=== PATIENT | female | born 1965 | race Caucasian/White ===

== ENCOUNTER 2022-09-07 08:44 | Outpatient (CLI) | payer BC, SELFPAY ==
[2022-09-07 14:19] LABS: Chloride* 101 mmol/L (96-114); Potassium* 4.3 mmol/L (3.6-5.1); Sodium* 135 mmol/L (135-149)
[2022-09-07 14:21] LABS: Cholesterol* 179 mg/dL (90-199); Creatinine* 0.6 mg/dL (0.5-1.5); Estimated Glomerular Filt Rate 106 ml/min
[2022-09-07 14:22] LABS: Blood Urea Nitrogen* 17 mg/dL (7-30); Calcium* 8.8 mg/dL (8.4-10.6); Carbon Dioxide* 33 mmol/L (20-32); Glucose* 87 mg/dL (60-115); HDL Cholesterol* 83 mg/dL (>=50); LDL Cholesterol Calculated 81 mg/dL (<100); Triglycerides* 77 mg/dL (40-149)
== END 2022-09-07 08:45 | disposition home or self-care (01) ==
PROVIDERS: PCP Family Medicine; Visit Provider Family Medicine
DX: I10 Essential (primary) hypertension (principal); Z13.6 Encounter for screening for cardiovascular disorders
CPT/HCPCS: 80048; 80061

== ENCOUNTER 2022-09-09 06:36 | Emergency (ER) | payer BC, SELFPAY ==
[2022-09-09 06:45] VITALS: BP 164/89; PULSE 77; RESP 18; TEMP 36.5; O2SAT 99; BMI 23.4
--- NOTE | 2022-09-09 07:31 | ED.ABDPAIN ---
HPI - Abdominal Pain General Date Seen: 09/09/22 <Dru Zamora MD - Last Filed: 09/09/22 07:50> Chief Complaint: Abdominal Pain <Dru Zamora MD - Last Filed: 09/09/22 07:50> Stated Complaint: abdominal pain <Dru Zamora MD - Last Filed: 09/09/22 07:50> Time Seen by Provider: 09/09/22 06:37 <Dru Zamora MD - Last Filed: 09/09/22 07:50> Source: patient <Dru Zamora MD - Last Filed: 09/09/22 07:50> Mode of arrival: ambulatory <Dru Zamora MD - Last Filed: 09/09/22 07:50> Limitations: no limitations <Dru Zamora MD - Last Filed: 09/09/22 07:50> History of Present Illness HPI narrative: Patient is a 56-year-old female who presents here with epigastric discomfort since approximately about midnight, 7 hours in total. She describes burning in her epigastrium, with no radiation to her chest back or anywhere else. She notes that the pain was not help with [place] that she took at home. There is no nausea associated with this any vomiting, her bowel movements have been normal and she has an absence of dysuria she has no cardiac history per se but does have a history of smoking and also hypertension. She works a very stressful job with the [email or web address], and does drink approximately 2 caffeinated beverages a day. She has noted no coughing shortness of breath fevers chills associated with this or any other COVID type symptoms. She did take 3 tablets of Advil before she came in and this did help. <Dru Zamora MD - Last Filed: 09/09/22 07:50> MD elicited complaint: abdominal pain <Dru Zamora MD - Last Filed: 09/09/22 07:50> Pertinent past history: none <Dru Zamora MD - Last Filed: 09/09/22 07:50> Onset (ago): hour(s) <Dru Zamora MD - Last Filed: 09/09/22 07:50> Pain Consistency: constant <Dru Zamora MD - Last Filed: 09/09/22 07:50> Location: epigastric <Dru Zamora MD - Last Filed: 09/09/22 07:50> Severity: moderate <Dru Zamora MD - Last Filed: 09/09/22 07:50> Quality: sharp and burning <Dru Zamora MD - Last Filed: 09/09/22 07:50> Radiation: none <Dru Zamora MD - Last Filed: 09/09/22 07:50> Migration to: no migration <Dru Zamora MD - Last Filed: 09/09/22 07:50> Exacerbating factors: nothing <Dru Zamora MD - Last Filed: 09/09/22 07:50> Relieving factors: nothing <Dru Zamora MD - Last Filed: 09/09/22 07:50> Associated symptoms: denies other symptoms <Dru Zamora MD - Last Filed: 09/09/22 07:50> Treatments prior to arrival: NSAIDs <Dru Zamora MD - Last Filed: 09/09/22 07:50> Related Data Patient : No <Dru Zamora MD - Last Filed: 09/09/22 07:50> Home Medications: Home Medications Medication Instructions Recorded Confirmed Oregano spirits PO 09/06/22 Tumeric PO 09/06/22 albuterol sulfate 90 mcg/actuation 2 puff inhalation Q4H PRN 09/06/22 09/09/22 aerosol inhaler aspirin 81 mg chewable tablet 1 tab PO DAILY 09/06/22 09/09/22 coenzyme Q10 100 mg capsule 100 mg PO DAILY 09/06/22 09/09/22 garlic 500 mg capsule 500 mg PO BID 09/06/22 09/09/22 melatonin 3 mg capsule 3 mg PO HS PRN 09/06/22 09/09/22 psyllium 1 tbsp PO QDAY 09/06/22 09/09/22 zinc gluconate 50 mg tablet 50 mg PO DAILY 09/06/22 09/09/22 magnesium PO 09/07/22 09/07/22 Previous Rx's Medication Instructions Recorded amlodipine 5 mg tablet 5 mg PO QDAY #90 tabs 09/07/22 lisinopril 20 2 tab PO QDAY #180 tabs 09/07/22 mg-hydrochlorothiazide 12.5 mg tablet <Dru Zamora MD - Last Filed: 09/09/22 07:50> Allergies/Adverse Reactions: Allergies Allergy/AdvReac Type Severity Reaction Status Date / Time No Known Drug Allergies Allergy Verified 09/09/22 06:54 <Dru Zamora MD - Last Filed: 09/09/22 07:50> Review of Systems Status of ROS Reports: 10 or more systems reviewed and unremarkable except as noted in History and below <Dru Zamora MD - Last Filed: 09/09/22 07:50> PFSH PFS Medical History: Medical History Chest wall pain Hypertension Tobacco abuse <Dru Zamora MD - Last Filed: 09/09/22 07:50> Surgical History: Surgical History No significant past surgical history <Dru Zamora MD - Last Filed: 09/09/22 07:50> Family History: Family History Mother High blood pressure <Dru Zamora MD - Last Filed: 09/09/22 07:50> Social History: Social History Narrative: , 2 kids Lead [employer] trying to quit smoking social EtHO Smoking Status: Current every day smoker Second hand tobacco smoke exposure: Yes How often do you have a drink containing alcohol: never How often do you have six or more drinks on one occasion: Never AUDIT-C Alcohol total score: 0 Non-prescribed substance use: denies use Little interest or pleasure in doing things: not at all Feeling down, depressed, or hopeless: not at all <Dru Zamora MD - Last Filed: 09/09/22 07:50> Exam Narrative: Exam Narrative: Patient is speaking normally, no problem with slurring words, oriented x3. Head eyes ears nose and throat exam show equal pupils, no scleral icterus, extraocular muscles are normal, no facial droop, speech is normal, trachea normal and midline. Thyroid normal midline palpable not enlarged. Chest shows symmetrical rise bilaterally, normal auscultation with no wheezes, no increased work of breathing, no overt bruising or lesions seen, no tenderness is noted on auscultation. Heart sounds normal with no S3-S4 no murmurs clicks or gallops. Abdomen shows no obvious masses or hepatosplenomegaly, no organomegaly, bowel sounds are normal in all quadrants. No tenderness is noted also in all quadrants. No pulsatile masses are noted on her abdomen.Upper and lower extremities show normal power, normal range of motion, pulses are normal, sensations normal, fine motor movements are normal, pelvis is stable to rocking. Cervical spine shows normal range of motion, and palpably not tender. Thoracic spine shows normal range of motion, and palpably not tender, lumbar spine shows no tenderness to palpation percussion and is otherwise normal range of motion. Skin shows no rashes, petechiae or eccymosis. <Dru Zamora MD - Last Filed: 09/09/22 07:50> Const: Vital Signs, click to edit/add: Vital Signs - 24 hr 09/09/22 06:45 Temperature 97.7 F Pulse Rate [Right Pulse Oximeter] 77 Respiratory Rate 18 Blood Pressure [Ri ght Upper Arm] 164/89 H Pulse Oximetry 99 Oxygen Delivery Me thod Room Air <Dru Zamora MD - Last Filed: 09/09/22 07:50> Vital Signs, click to edit/add: Vital Signs - 24 hr 09/09/22 06:45 Temperature 97.7 F Pulse Rate [Right Pulse Oximeter] 77 Respiratory Rate 18 Blood Pressure [Ri ght Upper Arm] 164/89 H Pulse Oximetry 99 Oxygen Delivery Me thod Room Air <Everett Macias MD - Last Filed: 09/09/22 10:28> Documenting provider has reviewed patient's vital signs: yes <Dru Zamora MD - Last Filed: 09/09/22 07:50> Course Reevaluation(s) Reevaluation #1: Pt states her epigastric pain is improved. Pt's ultrasound and follow up troponin and EKG are both normal. <Everett Macias MD - Last Filed: 09/09/22 10:28> Time: 10:24 <Everett Macias MD - Last Filed: 09/09/22 10:28> Vital Signs Vital signs: Initial Vital Signs Temperature 97.7 F 09/09/22 06:45 Temperature Source Oral 09/09/22 06:45 Pulse Rate 77 09/09/22 06:45 Respiratory Rate 18 09/09/22 06:45 Blood Pressure 164/89 H 09/09/22 06:45 Blood Pressure Mean 114 09/09/22 06:45 Blood Pressure Position Sitting 09/09/22 06:45 Pulse Oximetry 99 09/09/22 06:45 Oxygen Delivery Method 09/09/22 06:45 Vital Signs Temperature 97.7 F 09/09/22 06:45 Pulse Rate 77 09/09/22 06:45 Respiratory Rate 18 09/09/22 06:45 Blood Pressure 164/89 H 09/09/22 06:45 Pulse Oximetry 99 09/09/22 06:45 Oxygen Delivery Method 09/09/22 06:45 Temperature 97.7 F 09/09/22 06:45 Pulse Rate 77 09/09/22 06:45 Respiratory Rate 18 09/09/22 06:45 Blood Pressure 164/89 H 09/09/22 06:45 Pulse Oximetry 99 09/09/22 06:45 Oxygen Delivery Method 09/09/22 06:45 <Dru Zamora MD - Last Filed: 09/09/22 07:50> Initial Vital Signs Temperature 97.7 F 09/09/22 06:45 Temperature Source Oral 09/09/22 06:45 Pulse Rate 77 09/09/22 06:45 Respiratory Rate 18 09/09/22 06:45 Blood Pressure 164/89 H 09/09/22 06:45 Blood Pressure Mean 114 09/09/22 06:45 Blood Pressure Position Sitting 09/09/22 06:45 Pulse Oximetry 99 09/09/22 06:45 Oxygen Delivery Method 09/09/22 06:45 Vital Signs Temperature 97.7 F 09/09/22 06:45 Pulse Rate 77 09/09/22 06:45 Respiratory Rate 18 09/09/22 06:45 Blood Pressure 164/89 H 09/09/22 06:45 Pulse Oximetry 99 09/09/22 06:45 Oxygen Delivery Method 09/09/22 06:45 Temperature 97.7 F 09/09/22 06:45 Pulse Rate 77 09/09/22 06:45 Respiratory Rate 18 09/09/22 06:45 Blood Pressure 164/89 H 09/09/22 06:45 Pulse Oximetry 99 09/09/22 06:45 Oxygen Delivery Method 09/09/22 06:45 <Everett Macias MD - Last Filed: 09/09/22 10:28> MDM - Abdominal Pain MDM Narrative Medical decision making narrative: During the evaluation of this patient I considered multiple differential diagnosis including life-threatening differentials which are appendicitis, aortic aneurysm, mesenteric ischemia, bowel perforation, ectopic , volvulus and bowel obstruction, other differential diagnosis include but are not limited to inflammatory bowel disease, cholecystitis, pancreatitis, hepatitis, gastritis, GERD, diverticulitis, peptic ulcer disease, pyelonephritis/UTI, renal colic/stone, pelvic inflammatory disease, cervicitis, endometritis, intrauterine , dysfunctional uterine bleeding, ovarian cyst/torsion, spontaneous as well as other etiologies <Dru Zamora MD - Last Filed: 09/09/22 07:50> During the evaluation of this patient I considered multiple differential diagnosis including life-threatening differentials which are appendicitis, aortic aneurysm, mesenteric ischemia, bowel perforation, ectopic , volvulus and bowel obstruction, other differential diagnosis include but are not limited to inflammatory bowel disease, cholecystitis, pancreatitis, hepatitis, gastritis, GERD, diverticulitis, peptic ulcer disease, pyelonephritis/UTI, renal colic/stone, pelvic inflammatory disease, cervicitis, endometritis, intrauterine , dysfunctional uterine bleeding, ovarian cyst/torsion, spontaneous as well as other etiologies Follow up testing for my colleague including troponin, ekg and ultrasound negative for acute processes. <Everett Macias MD - Last Filed: 09/09/22 10:28> Differential Diagnosis Differential diagnosis: Likely abdominal pain, acute appendicitis, diverticulitis, gastroenteritis, pancreatitis and small bowel obstruction <Everett Macias MD - Last Filed: 09/09/22 10:28> Medical Records Attestation: I reviewed the patient's medical records. <Dru Zamora MD - Last Filed: 09/09/22 07:50> Lab Data Attestation: I reviewed the patient's lab results. <Dru Zamora MD - Last Filed: 09/09/22 07:50> Labs: Lab Results 09/09/22 09/09/22 09/09/22 Range/Units 07:20 07:20 07:20 WBC 11.29 H (4.50-11.00) K/uL RBC 4.67 (4.00-5.20) m/uL Hgb 14.9 (12.0-16.0) gm/dL Hct 43.1 (33.0-51.0) % MCV 92 (80-100) fL MCH 32 (26-34) pg MCHC 35 (32-36) gm/dL RDW Coeff of Jose 13.0 (11.5-15.5) % Plt Count 234 (140-440) K/uL Neut % (Auto) 80.0 H (42.0-72.0) % Lymph % (Auto) 12.3 L (20-44) % Garrett % (Auto) 6.2 (0.0-11.0) % Eos % (Auto) 1.1 (0.0-7.0) % Baso % (Auto) 0.4 (0.0-3.0) % Neut # (Auto) 9.00 H (1.7-7.0) K/uL Lymph # (Auto) 1.40 (0.90-2.90) K/uL Garrett # (Auto) 0.70 (0.00-0.90) K/UL Eos # (Auto) 0.10 (0.00-0.50) K/uL Baso # (Auto) 0.00 (0.00-0.30) K/uL D-Dimer Quant (PE/DVT) (0.00-0.50) ug/ml Sodium 135 (135-149) mmol/L Potassium 3.5 L (3.6-5.1) mmol/L Chloride 100 (96-114) mmol/L Carbon Dioxide 32 (20-32) mmol/L BUN 15 (7-30) mg/dL Creatinine 0.5 (0.5-1.5) mg/dL Estimated Creat Clear 119.01 Estimated GFR 111 ml/min Glucose 95 (60-115) mg/dL Calcium 8.9 (8.4-10.6) mg/dL Total Bilirubin 0.7 (0.1-1.5) mg/dL Direct Bilirubin 0.1 (0.0-0.5) mg/dL AST 27 (12-35) U/L ALT 27 (4-35) U/L Alkaline Phosphatase 67 (40-150) U/L Total Protein 7.2 (6.0-8.3) g/dL Albumin 4.3 (3.3-5.0) g/dL Amylase 81 (18-89) U/L Lipase 143 (23-300) U/L Urine Color (Yellow) Urine Appearance (Clear) Urine pH (5.0-8.5) Ur Specific [place] (1.000-1.030) Urine Protein (Negative) Urine Glucose (UA) (Negative) Urine Ketones (Negative) Urine Blood (Negative) Urine Nitrite (Negative) Urine Bilirubin (Negative) Urine Urobilinogen (0.2-1.0) Ur Leukocyte Esterase (Negative) Urine RBC (0-2) Urine WBC (0-5) Ur Squamous Epith Cells (None-Few) Amorphous Sediment (None) Urine Bacteria (None) POC Troponin I (0.01-0.04) ng/ml 09/09/22 09/09/22 09/09/22 Range/Units 07:20 07:29 08:05 WBC (4.50-11.00) K/uL RBC (4.00-5.20) m/uL Hgb (12.0-16.0) gm/dL Hct (33.0-51.0) % MCV (80-100) fL MCH (26-34) pg MCHC (32-36) gm/dL RDW Coeff of Jose (11.5-15.5) % Plt Count (140-440) K/uL Neut % (Auto) (42.0-72.0) % Lymph % (Auto) (20-44) % Garrett % (Auto) (0.0-11.0) % Eos % (Auto) (0.0-7.0) % Baso % (Auto) (0.0-3.0) % Neut # (Auto) (1.7-7.0) K/uL Lymph # (Auto) (0.90-2.90) K/uL Garrett # (Auto) (0.00-0.90) K/UL Eos # (Auto) (0.00-0.50) K/uL Baso # (Auto) (0.00-0.30) K/uL D-Dimer Quant (PE/DVT) < 0.27 (0.00-0.50) ug/ml Sodium (135-149) mmol/L Potassium (3.6-5.1) mmol/L Chloride (96-114) mmol/L Carbon Dioxide (20-32) mmol/L BUN (7-30) mg/dL Creatinine (0.5-1.5) mg/dL Estimated Creat Clear Estimated GFR ml/min Glucose (60-115) mg/dL Calcium (8.4-10.6) mg/dL Total Bilirubin (0.1-1.5) mg/dL Direct Bilirubin (0.0-0.5) mg/dL AST (12-35) U/L ALT (4-35) U/L Alkaline Phosphatase (40-150) U/L Total Protein (6.0-8.3) g/dL Albumin (3.3-5.0) g/dL Amylase (18-89) U/L Lipase (23-300) U/L Urine Color Yellow (Yellow) Urine Appearance Clear (Clear) Urine pH 7.5 (5.0-8.5) Ur Specific [place] 1.015 (1.000-1.030) Urine Protein Negative (Negative) Urine Glucose (UA) Negative (Negative) Urine Ketones Negative (Negative) Urine Blood Trace-intact A (Negative) Urine Nitrite Negative (Negative) Urine Bilirubin Negative (Negative) Urine Urobilinogen 0.2 (0.2-1.0) Ur Leukocyte Esterase Trace A (Negative) Urine RBC 0-2 (0-2) Urine WBC 0-2 (0-5) Ur Squamous Epith Cells Few (None-Few) Amorphous Sediment Few A (None) Urine Bacteria Moderate A (None) POC Troponin I 0.00 L (0.01-0.04) ng/ml 09/09/22 Range/Units 08:45 WBC (4.50-11.00) K/uL RBC (4.00-5.20) m/uL Hgb (12.0-16.0) gm/dL Hct (33.0-51.0) % MCV (80-100) fL MCH (26-34) pg MCHC (32-36) gm/dL RDW Coeff of Jose (11.5-15.5) % Plt Count (140-440) K/uL Neut % (Auto) (42.0-72.0) % Lymph % (Auto) (20-44) % Garrett % (Auto) (0.0-11.0) % Eos % (Auto) (0.0-7.0) % Baso % (Auto) (0.0-3.0) % Neut # (Auto) (1.7-7.0) K/uL Lymph # (Auto) (0.90-2.90) K/uL [place] # (Auto) (0.00-0.90) K/UL Eos # (Auto) (0.00-0.50) K/uL Baso # (Auto) (0.00-0.30) K/uL D-Dimer Quant (PE/DVT) (0.00-0.50) ug/ml Sodium (135-149) mmol/L Potassium (3.6-5.1) mmol/L Chloride (96-114) mmol/L Carbon Dioxide (20-32) mmol/L BUN (7-30) mg/dL Creatinine (0.5-1.5) mg/dL Estimated Creat Clear Estimated GFR ml/min Glucose (60-115) mg/dL Calcium (8.4-10.6) mg/dL Total Bilirubin (0.1-1.5) mg/dL Direct Bilirubin (0.0-0.5) mg/dL AST (12-35) U/L ALT (4-35) U/L Alkaline Phosphatase (40-150) U/L Total Protein (6.0-8.3) g/dL Albumin (3.3-5.0) g/dL Amylase (18-89) U/L Lipase (23-300) U/L Urine Color (Yellow) Urine Appearance (Clear) Urine pH (5.0-8.5) Ur Specific [place] (1.000-1.030) Urine Protein (Negative) Urine Glucose (UA) (Negative) Urine Ketones (Negative) Urine Blood (Negative) Urine Nitrite (Negative) Urine Bilirubin (Negative) Urine Urobilinogen (0.2-1.0) Ur Leukocyte Esterase (Negative) Urine RBC (0-2) Urine WBC (0-5) Ur Squamous Epith Cells (None-Few) Amorphous Sediment (None) Urine Bacteria (None) POC Troponin I 0.00 L (0.01-0.04) ng/ml <Dru Zamora MD - Last Filed: 09/09/22 07:50> Lab Results 09/09/22 09/09/22 09/09/22 Range/Units 07:20 07:20 07:20 WBC 11.29 H (4.50-11.00) K/uL RBC 4.67 (4.00-5.20) m/uL Hgb 14.9 (12.0-16.0) gm/dL Hct 43.1 (33.0-51.0) % MCV 92 (80-100) fL MCH 32 (26-34) pg MCHC 35 (32-36) gm/dL RDW Coeff of Jose 13.0 (11.5-15.5) % Plt Count 234 (140-440) K/uL Neut % (Auto) 80.0 H (42.0-72.0) % Lymph % (Auto) 12.3 L (20-44) % Garrett % (Auto) 6.2 (0.0-11.0) % Eos % (Auto) 1.1 (0.0-7.0) % Baso % (Auto) 0.4 (0.0-3.0) % Neut # (Auto) 9.00 H (1.7-7.0) K/uL Lymph # (Auto) 1.40 (0.90-2.90) K/uL Garrett # (Auto) 0.70 (0.00-0.90) K/UL Eos # (Auto) 0.10 (0.00-0.50) K/uL Baso # (Auto) 0.00 (0.00-0.30) K/uL D-Dimer Quant (PE/DVT) (0.00-0.50) ug/ml Sodium 135 (135-149) mmol/L Potassium 3.5 L (3.6-5.1) mmol/L Chloride 100 (96-114) mmol/L Carbon Dioxide 32 (20-32) mmol/L BUN 15 (7-30) mg/dL Creatinine 0.5 (0.5-1.5) mg/dL Estimated Creat Clear 119.01 Estimated GFR 111 ml/min Glucose 95 (60-115) mg/dL Calcium 8.9 (8.4-10.6) mg/dL Total Bilirubin 0.7 (0.1-1.5) mg/dL Direct Bilirubin 0.1 (0.0-0.5) mg/dL AST 27 (12-35) U/L ALT 27 (4-35) U/L Alkaline Phosphatase 67 (40-150) U/L Total Protein 7.2 (6.0-8.3) g/dL Albumin 4.3 (3.3-5.0) g/dL Amylase 81 (18-89) U/L Lipase 143 (23-300) U/L Urine Color (Yellow) Urine Appearance (Clear) Urine pH (5.0-8.5) Ur Specific [place] (1.000-1.030) Urine Protein (Negative) Urine Glucose (UA) (Negative) Urine Ketones (Negative) Urine Blood (Negative) Urine Nitrite (Negative) Urine Bilirubin (Negative) Urine Urobilinogen (0.2-1.0) Ur Leukocyte Esterase (Negative) Urine RBC (0-2) Urine WBC (0-5) Ur Squamous Epith Cells (None-Few) Amorphous Sediment (None) Urine Bacteria (None) POC Troponin I (0.01-0.04) ng/ml 09/09/22 09/09/22 09/09/22 Range/Units 07:20 07:29 08:05 WBC (4.50-11.00) K/uL RBC (4.00-5.20) m/uL Hgb (12.0-16.0) gm/dL Hct (33.0-51.0) % MCV (80-100) fL MCH (26-34) pg MCHC (32-36) gm/dL RDW Coeff of Jose (11.5-15.5) % Plt Count (140-440) K/uL Neut % (Auto) (42.0-72.0) % Lymph % (Auto) (20-44) % Garrett % (Auto) (0.0-11.0) % Eos % (Auto) (0.0-7.0) % Baso % (Auto) (0.0-3.0) % Neut # (Auto) (1.7-7.0) K/uL Lymph # (Auto) (0.90-2.90) K/uL Garrett # (Auto) (0.00-0.90) K/UL Eos # (Auto) (0.00-0.50) K/uL Baso # (Auto) (0.00-0.30) K/uL D-Dimer Quant (PE/DVT) < 0.27 (0.00-0.50) ug/ml Sodium (135-149) mmol/L Potassium (3.6-5.1) mmol/L Chloride (96-114) mmol/L Carbon Dioxide (20-32) mmol/L BUN (7-30) mg/dL Creatinine (0.5-1.5) mg/dL Estimated Creat Clear Estimated GFR ml/min Glucose (60-115) mg/dL Calcium (8.4-10.6) mg/dL Total Bilirubin (0.1-1.5) mg/dL Direct Bilirubin (0.0-0.5) mg/dL AST (12-35) U/L ALT (4-35) U/L Alkaline Phosphatase (40-150) U/L Total Protein (6.0-8.3) g/dL Albumin (3.3-5.0) g/dL Amylase (18-89) U/L Lipase (23-300) U/L Urine Color Yellow (Yellow) Urine Appearance Clear (Clear) Urine pH 7.5 (5.0-8.5) Ur Specific [place] 1.015 (1.000-1.030) Urine Protein Negative (Negative) Urine Glucose (UA) Negative (Negative) Urine Ketones Negative (Negative) Urine Blood Trace-intact A (Negative) Urine Nitrite Negative (Negative) Urine Bilirubin Negative (Negative) Urine Urobilinogen 0.2 (0.2-1.0) Ur Leukocyte Esterase Trace A (Negative) Urine RBC 0-2 (0-2) Urine WBC 0-2 (0-5) Ur Squamous Epith Cells Few (None-Few) Amorphous Sediment Few A (None) Urine Bacteria Moderate A (None) POC Troponin I 0.00 L (0.01-0.04) ng/ml 09/09/22 Range/Units 08:45 WBC (4.50-11.00) K/uL RBC (4.00-5.20) m/uL Hgb (12.0-16.0) gm/dL Hct (33.0-51.0) % MCV (80-100) fL MCH (26-34) pg MCHC (32-36) gm/dL RDW Coeff of Jose (11.5-15.5) % Plt Count (140-440) K/uL Neut % (Auto) (42.0-72.0) % Lymph % (Auto) (20-44) % Garrett % (Auto) (0.0-11.0) % Eos % (Auto) (0.0-7.0) % Baso % (Auto) (0.0-3.0) % Neut # (Auto) (1.7-7.0) K/uL Lymph # (Auto) (0.90-2.90) K/uL Garrett # (Auto) (0.00-0.90) K/UL Eos # (Auto) (0.00-0.50) K/uL Baso # (Auto) (0.00-0.30) K/uL D-Dimer Quant (PE/DVT) (0.00-0.50) ug/ml Sodium (135-149) mmol/L Potassium (3.6-5.1) mmol/L Chloride (96-114) mmol/L Carbon Dioxide (20-32) mmol/L BUN (7-30) mg/dL Creatinine (0.5-1.5) mg/dL Estimated Creat Clear Estimated GFR ml/min Glucose (60-115) mg/dL Calcium (8.4-10.6) mg/dL Total Bilirubin (0.1-1.5) mg/dL Direct Bilirubin (0.0-0.5) mg/dL AST (12-35) U/L ALT (4-35) U/L Alkaline Phosphatase (40-150) U/L Total Protein (6.0-8.3) g/dL Albumin (3.3-5.0) g/dL Amylase (18-89) U/L Lipase (23-300) U/L Urine Color (Yellow) Urine Appearance (Clear) Urine pH (5.0-8.5) Ur Specific [place] (1.000-1.030) Urine Protein (Negative) Urine Glucose (UA) (Negative) Urine Ketones (Negative) Urine Blood (Negative) Urine Nitrite (Negative) Urine Bilirubin (Negative) Urine Urobilinogen (0.2-1.0) Ur Leukocyte Esterase (Negative) Urine RBC (0-2) Urine WBC (0-5) Ur Squamous Epith Cells (None-Few) Amorphous Sediment (None) Urine Bacteria (None) POC Troponin I 0.00 L (0.01-0.04) ng/ml <Everett Macias MD - Last Filed: 09/09/22 10:28> ECG Data ECG interpretation date: 09/09/22 <Dru Zamora MD - Last Filed: 09/09/22 07:50> ECG interpretation time: 07:50 <Dru Zamora MD - Last Filed: 09/09/22 07:50> Prior ECG tracings: not available for review <Dru Zamora MD - Last Filed: 09/09/22 07:50> Interpretation: EKG shows normal sinus rhythm, no acute ST wave changes, suggestive of ischemia, rhythm is sinus and rate is 63. <Dru Zamora MD - Last Filed: 09/09/22 07:50> Discharge Plan Discharge Clinical Impression: Dyspepsia <Dru Zamora MD - Last Filed: 09/09/22 07:50> Patient Disposition: Home, Self-Care <Dru Zamora MD - Last Filed: 09/09/22 07:50> Condition: Stable <Dru Zamora MD - Last Filed: 09/09/22 07:50> Instructions: Abdominal Pain (ED) <Dru Zamora MD - Last Filed: 09/09/22 07:50> Additional Instructions: Prilosec over the counter 20 mg twice daily for 2 weeks Maalox as needed Follow up with your doctor in 1 week. <Dru Zamora MD - Last Filed: 09/09/22 07:50> Activity Level: No Restrictions <Dru Zamora MD - Last Filed: 09/09/22 07:50> No Restrictions <Everett Macias MD - Last Filed: 09/09/22 10:28> Discharge Diet: Regular <Dru Zamora MD - Last Filed: 09/09/22 07:50> Regular <Everett Macias MD - Last Filed: 09/09/22 10:28> Prescriptions: No Action melatonin 3 mg capsule 3 mg PO HS PRN coenzyme Q10 100 mg capsule 100 mg PO DAILY zinc gluconate 50 mg tablet 50 mg PO DAILY aspirin 81 mg tablet,chewable 1 tab PO DAILY Tumeric PO psyllium Powder 1 tbsp PO QDAY Rx Instructions: mix into at least 8 oz of water or juice before administering Oregano spirits PO garlic 500 mg capsule 500 mg PO BID albuterol sulfate 90 mcg/actuation HFA aerosol inhaler 2 puff inhalation Q4H PRN magnesium PO lisinopril-hydrochlorothiazide 20-12.5 mg tablet 2 tab PO QDAY Qty: 180 3RF amlodipine 5 mg tablet 5 mg PO QDAY Qty: 90 3RF <Dru Zamora MD - Last Filed: 09/09/22 07:50> Follow Up/Referrals: Gareth Hui MD [Primary Care Provider] - <Dru Zamora MD - Last Filed: 09/09/22 07:50> Stand Alone Forms: [facility] Info Instructions <Dru Zamora MD - Last Filed: 09/09/22 07:50>
--- NOTE | 2022-09-09 07:41 | CRLHL7_ITS ---
For Patients: As a result of the Century Cures Act, medical imaging exams and procedure reports are released immediately into your electronic medical record. You may view this report before your referring provider. If you have questions, please contact your health care provider. INDICATION: Epigastric discomfort. COMPARISON: None. TECHNIQUE: Real time pearl scale imaging was performed of the right upper quadrant. FINDINGS: The patient`s liver is of normal size and has uniform echogenicity. There is a normal appearance of the hepatic IVC and proximal abdominal aorta. There is no evidence of ascites. The gallbladder is of normal size and there is no evidence of intraluminal stones or sludge. The gallbladder wall measures 2 mm in thickness. The common bile duct is of normal size and measures 4 mm in diameter at the level of the shahbaz hepatis. The pancreas appears normal. There is no evidence of a stone or hydronephrosis within the right kidney. The right kidney measures 11.0 cm in length. IMPRESSION: Normal right upper quadrant ultrasound. Dictated by Joshua Conti MD @ 09/09/2022 8:54:28 AM (Electronically Signed)
[2022-09-09 07:45] LABS: Basophils Percent Auto 0.4 % (0.0-3.0); Eosinophils Percent Auto 1.1 % (0.0-7.0); Hematocrit 43.1 % (33.0-51.0); Hemoglobin* 14.9 gm/dL (12.0-16.0); Lymphocytes Percent Auto 12.3 % (20-44); Mean Corpuscular HGB Conc 35 gm/dL (32-36); Mean Corpuscular Hemoglobin 32 pg (26-34); Mean Corpuscular Volume 92 fL (80-100); Monocytes Percent Auto 6.2 % (0.0-11.0); Platelet Count* 234 K/uL (140-440); Red Blood Count 4.67 m/uL (4.00-5.20); Slide Review Reflex No; White Blood Count* 11.29 K/uL (4.50-11.00)
[2022-09-09 07:59] LABS: Chloride* 100 mmol/L (96-114); Sodium* 135 mmol/L (135-149)
[2022-09-09 08:00] LABS: Albumin* 4.3 g/dL (3.3-5.0)
[2022-09-09 08:02] LABS: Amylase* 81 U/L (18-89); Blood Urea Nitrogen* 15 mg/dL (7-30); Carbon Dioxide* 32 mmol/L (20-32); Creatinine* 0.5 mg/dL (0.5-1.5); Est. Creatinine Clearance* 119.01; Estimated Glomerular Filt Rate 111 ml/min; Glucose* 95 mg/dL (60-115)
[2022-09-09 08:03] LABS: Alkaline Phosphatase* 67 U/L (40-150); Aspartate Amino Transferase* 27 U/L (12-35); Bilirubin Direct* 0.1 mg/dL (0.0-0.5); Bilirubin Total* 0.7 mg/dL (0.1-1.5); Calcium* 8.9 mg/dL (8.4-10.6); D Dimer Quantitative* < 0.27 ug/ml (0.00-0.50); Lipase* 143 U/L (23-300); Total Protein* 7.2 g/dL (6.0-8.3)
[2022-09-09 08:04] LABS: Alanine Aminotransferase* 27 U/L (4-35)
[2022-09-09 08:17] LABS: Appearance Urine Clear (Clear); Bilirubin Urine Negative (Negative); Blood Urine Trace-intact (Negative); Color Urine Yellow (Yellow); Glucose Urine Negative (Negative); Ketones Urine Negative (Negative); Leukocyte Esterase Urine Trace (Negative); Nitrite Urine Negative (Negative); Protein Urine Negative (Negative); Specific Gravity Urine 1.015 (1.000-1.030); Urobilinogen Urine 0.2 (0.2-1.0); pH Urine 7.5 (5.0-8.5)
[2022-09-09 08:18] LABS: Potassium* 3.5 mmol/L (3.6-5.1)
[2022-09-09] MEDS: ASPIRIN 81 MG TAB.CHEW 324 MG PO (08:18)
[2022-09-09] MEDS: 0.9 % SODIUM CHLORIDE 1000 ml 1,000 ML IV (08:19)
[2022-09-09] MEDS: GI COCKTAIL (VISC LIDO/ANTACID) 30 ML PO (08:35)
[2022-09-09 09:08] LABS: RBC Urine 0-2 (0-2); Squamous Epithelial Cell Urine Few (None-Few); WBC Urine 0-2 (0-5)
[2022-09-09 09:09] LABS: Amorphous Sediment Urine Few; Bacteria Urine Moderate
[2022-09-09 10:56] VITALS: BP 168/78; PULSE 78; RESP 18; TEMP 36.6; O2SAT 98
== END 2022-09-09 10:57 | disposition home or self-care (01) ==
PROVIDERS: Emergency Provider Family Medicine; PCP Family Medicine
DX: R10.13 Epigastric pain (principal)
CPT/HCPCS: 36415; 76705; 80048; 80076; 81001; 82150; 83690; 84484; 85025; 85379; 87086; 93005; 96360; 99283; 99285; A9270; J7030

== ENCOUNTER 2024-05-01 14:19 | Outpatient (CLI) | payer BC, SELFPAY | END 2024-05-01 14:20 | disposition home or self-care (01) | PROVIDERS: PCP Family Medicine; Visit Provider Family Medicine | DX: I10 Essential (primary) hypertension (principal) | CPT/HCPCS: 80048; 80061 ==